=== PATIENT | female | born 1965 | race Caucasian/White ===

== ENCOUNTER 2022-03-30 11:04 | Emergency (ER) | payer OTHER, SELFPAY ==
--- NOTE | ~2022-03-30 | XR_ITS ---
EXAMINATION: XR foot LT min 3V DATE: 03/30/2022 11:57 INDICATION: Left foot injury and pain. TECHNIQUE: 4 views of left foot were obtained. COMPARISON: None. FINDINGS: There is mild hallux valgus. No fracture. There is mild osteoarthritis of first metatarsoph alangeal joint. There is heterotopic calcification dorsal to navicular. IMPRESSION: 1. Mild hallux valgus. 2. Mild osteoarthritis of first metatarsophalangeal joint. Reviewed, dictated and finalized at location A. R [facility]ATING [facility]
[2022-03-30 11:15] VITALS: BP 125/69; PULSE 78; RESP 16; TEMP 36.6; O2SAT 98
--- NOTE | 2022-03-30 13:23 | ED.GENADULT ---
HPI - General Adult General Chief complaint: Extremity Injury, Lower Stated complaint: left foot injury Source: patient Mode of arrival: ambulatory Limitations: no limitations History of Present Illness HPI narrative: Patient presents for evaluation of left foot pain. She indicates she was walking down steps into her [place] 1 week ago when she missed the last step. She hit her right knee against the ground and experienced pain in the left foot. She now has bruising in that foot. She rates her pain 1/10 in severity. She does get intermittent numbness. She has been using a walking boot and a kneeling cart, which seemed to help. She has been applying ice. No additional complaints or concerns. Related Data Home Medications Medication Instructions Recorded Confirmed No Home Medications 03/30/22 03/30/22 Allergies Allergy/AdvReac Type Severity Reaction Status Date / Time No Known Allergies Allergy Verified 03/30/22 11:14 Review of Systems Review of Systems: CONSTITUTIONAL: Denies fever, chills, or sweats. EYES: Denies visual changes, redness, or discharge. ENT: Denies rhinorrhea, congestion, sore throat, or otalgia. CARDIOVASCULAR: Denies chest pain, palpitations, or edema. RESPIRATORY: Denies cough or dyspnea. GASTROINTESTINAL: Denies abdominal pain, nausea, vomiting, or diarrhea. GENITOURINARY: Denies dysuria or hematuria. SKIN: Reports bruising to left foot. Denies rash or itching. MUSCULOSKELETAL: Reports left foot pain. NEUROLOGIC: Denies headache, numbness, dizziness, or weakness. PSYCHIATRIC: Denies anxiety or depression. PMFSH Past Medical History Medical History No pertinent past medical history Surgical History Surgical History No pertinent past surgical history Family History Family History Mother Family history non-contributory Social History Social History (Updated 03/30/22 @ 13:25 by TAYLOR GreenbergP, ) Smoking status: Never smoker Substance use: never Gender identity (if verbalized by the patient): Female Spiritual care concerns: No Exam Narrative: GENERAL: Well-appearing, well-nourished, and in no acute distress. HEAD: Normocephalic, atraumatic. EYES: PERRLA and EOMI. ENT: Nares clear, no rhinorrhea or epistaxis. Mucous membranes moist. Oropharynx without tonsillar hypertrophy exudate or other lesions. Bilateral TMs pearly sales nonbulging NECK: Supple. No adenopathy or masses. No carotid bruits or JVD CHEST: Clear to auscultation. No respiratory distress. No wheezes rales or rhonchi HEART: Regular rate and rhythm. No murmur heard. Normal peripheral pulses. ABDOMEN: Soft, nontender, nondistended, normal active bowel sounds. EXTREMITIES: Normal range of motion. No edema. There is mild tenderness over the dorsal aspect of the mid section of the left foot. Walking boot to left lower extremity which was removed for evaluation SKIN: There is ecchymosis noted to the dorsal aspect of the left foot. Warm, dry, no rash. NEURO: No focal deficits. Alert and oriented x3. PSYCH: Normal mood and affect. Course Course Emergency Course: This is a 56-year-old female who presented for evaluation of pain in left foot. X-ray was negative for fracture. Exam is consistent with strain. Advised on RICE therapy. NSAIDs for pain. Follow-up with orthopedics. Go to the ER for intractable pain. Patient in agreement with plan of care for Level of Care: Express Care Visit Vital Signs Vital signs: Vital Signs Temperature 36.6 C 03/30/22 11:15 Pulse Rate 78 03/30/22 11:15 Respiratory Rate 16 03/30/22 11:15 Blood Pressure 125/69 03/30/22 11:15 Pulse Oximetry 98 03/30/22 11:15 Oxygen Delivery Room Air 03/30/22 11:15 Temperature 36.6 C 03/30/22 11:15 Pulse Rate 78 01/0
== END 2022-03-30 13:27 | disposition home or self-care (01) ==
PROVIDERS: Emergency Provider Nurse Practitioner; PCP Nurse Practitioner Family
DX: S96.912A Strain of unspecified muscle and tendon at ankle and foot level, left foot, initial encounter (principal); W10.9XXA Fall (on) (from) unspecified stairs and steps, initial encounter
CPT/HCPCS: 73630; 99213; G0463